=== PATIENT | male | born 1995 | race Two or more races ===

== ENCOUNTER 2021-01-18 14:15 | Inpatient (IN) | payer BC, MEDICAID ==
[~2021-01-18] VITALS: Ht 177.8 cm; Wt 88.0 kg
--- NOTE | 2021-01-18 14:20 | NUR ---
, from home, had syncopal episode, no injuries, c/o fever and body aches since . patient a/ox4, breathing even and unlabored, no sob ntoed.
--- NOTE | 2021-01-18 14:35 | NUR ---
dr. greenfield at bedside for eval.
[2021-01-18] MEDS ORDERED: ACETAMINOPHEN 325 MG TABLET ONE (14:55)
[2021-01-18] MEDS ORDERED: NS 0.9% IV ONE (15:00)
[2021-01-18] MEDS ORDERED: ACETAMINOPHEN 325 MG TABLET PO ONE (15:00)
[2021-01-18 15:04] LABS: HEMOGLOBIN 16.2 g/dL (13.5-17.5); MEAN CORPUSCULAR HGB CONC 35 g/dl (31.0-36.0); PLATELET COUNT (AUTO) 104 K/uL (150-450); WHITE BLOOD COUNT (AUTO) 3.3 K/uL (4.3-11.0)
[2021-01-18 15:06] LABS: BASOPHILS % (AUTO) 0.3 % (0.0-2.0); HEMATOCRIT 47 % (39-51); LYMPHOCYTES # (AUTO) 0.5 K/uL (0.8-4.8); LYMPHOCYTES % (AUTO) 14.4 % (20.0-44.0); MEAN CORPUSCULAR VOLUME 86 fL (80-96); MONOCYTES # (AUTO) 0.2 K/uL (0.1-1.30); NEUTROPHILS # (AUTO) 2.6 K/uL (1.8-8.9); NEUTROPHILS % (AUTO) 79.3 % (43.0-81.0); RED BLOOD CELL COUNT(AUTO) 5.44 MIL/uL (4.5-6.0)
[2021-01-18 15:10] LABS: ALCOHOL, BLOOD < 3 mg/dL (0-0); CALCIUM, SERUM 8.2 mg/dL (8.5-10.1); CARBON DIOXIDE 25 mmol/L (21-32); CHLORIDE 100 mmol/L (98-107); CREATININE 1.3 mg/dL (0.6-1.3); GLUCOSE 102 mg/dL (74-106); MAGNESIUM 1.7 mg/dL (1.8-2.4); POTASSIUM 3.6 mmol/L (3.5-5.1); SODIUM SERUM 137 mmol/L (136-145); UREA NITROGEN, BLOOD 9 mg/dL (7-18)
[2021-01-18 15:15] LABS: BILIRUBIN,URINE Negative (NEGATIVE); COLOR,URINE YELLOW (YELLOW); LEUKOCYTE ESTERASE ,URINE Negative (NEGATIVE); NITRITE, URINE Negative (NEGATIVE); PROTEIN,URINE 30 mg/dl (NEGATIVE); UGLUCOSE Negative (NEGATIVE)
[2021-01-18 15:16] LABS: ALANINE AMINOTRANSFERASE 19 U/L (12-78); ALBUMIN 3.8 g/dL (3.4-5.0); ALKALINE PHOSPHATASE 61 U/L (46-116); ASPARTATE AMINOTRANSFERASE 31 U/L (15-37); BILIRUBIN,DIRECT 0.1 mg/dL (0.0-0.2); BILIRUBIN,TOTAL 0.4 mg/dL (0.2-1.0); TOTAL PROTEIN, SERUM 7.5 g/dL (6.4-8.2)
--- NOTE | 2021-01-18 15:20 | NUR ---
PATIENT TAKEN TO CT.
[2021-01-18 15:22] LABS: RBC,URINE 0-2 /HPF (0-2)
[2021-01-18 15:23] LABS: BACTERIA,URINE Few /HPF (None Seen)
--- NOTE | 2021-01-18 15:30 | NUR ---
MOVE SHEET SUBMITTED.
--- NOTE | 2021-01-18 16:22 | NUR ---
PATIENT RESTING, NO DISTRESS NOTED.
[2021-01-18] MEDS ORDERED: CEFTRIAXONE 1 G in IV D5W 50 ML IV ONE (16:30)
[2021-01-18] MEDS ORDERED: MAGNESIUM OXIDE 400 MG TABLET PO ONE (16:30)
[2021-01-18] MEDS ORDERED: AZITHROMYCIN 500 MG in IV D5W 250 ML IV ONE (16:30)
[2021-01-18] MEDS ORDERED: CEFTRIAXONE 1GM BAG (ER ONLY) 50 ML IV ONE (16:45)
--- NOTE | 2021-01-18 16:50 | NUR ---
BED 108, GIVE REPORT AFTER 20 MINS.
[2021-01-18] MEDS ORDERED: AZITHROMYCIN 500 MG VIAL ONE (16:52)
--- NOTE | 2021-01-18 17:28 | NUR ---
REPORT GIVEN TO MARIAH EDWARDS FOR RAYO.
--- NOTE | 2021-01-18 17:29 | NUR ---
PATIENT TRANSFERRED TO ROOM 108 VIA ACLS PROTOCOL. IN NO DISTRESS 98% ON ROOM AIR.
[2021-01-18 17:30] VITALS: BP 95/60
--- NOTE | 2021-01-18 17:35 | NUR ---
GLOBAL SUPPLY CHAIN VICE PRESIDENT NOTE RECEIVED PT FROM ER. COVID + BY DR. LOPEZ. FROM HOME WITH SYNCOPAL EPISODE. AO X 3, PLACED ON 3L O2 NC, 96% SATURATION, SINUS RHYTHM HR 88 ON MONITOR, DENIES CHEST PAIN OR DISCOMFORT. IV ACCESS ON RT AC G 18, ONGOING AZYTHROMYCIN IV. PATIENT FOR CT PULMONARY ANGIOGRAM. DR. LOPEZ NOTIFIED OF ADMISSIONS AND ASKED FOR ADMIT ORDERS. UNIT ORIENTATION AND USED OF CALL LIGHT DONE. SAFETY MEASURES IN PLACE. BED LOW LOCKED, SR UP X 2, WILL ENDORSE TO NEXT SHIFT FOR RAYO.
[2021-01-18] MEDS ORDERED: ACETAMINOPHEN 325 MG TABLET PO PRN (18:00)
[2021-01-18] MEDS ORDERED: ZOLPIDEM TARTRATE 5 MG TABLET PO PRN (18:00)
[2021-01-18] MEDS: DEXAMETHASONE SOD PHOSPHATE 10 MG/ML VIAL IV SCH (18:31)
[2021-01-18] MEDS: Magnesium 1GM/D5W 100ML PREMIX 100 ML IV SCH ×2 (18:33→20:33)
[2021-01-18] MEDS ORDERED: IV NS 0.9% 250 ML IV ONE (18:36)
[2021-01-18] MEDS ORDERED: IOHEXOL-350 100 ML VIAL IV ONE (18:36)
--- NOTE | 2021-01-18 19:30 | NUR ---
RN NOTE RECEIVED PATIENT IN BED. A/OX4. ON 3L/MIN BUT REMOVE NASAL CANNULA. STABLE ON ROOM AIR. RESPIRATIONS ARE EVEN AND UNLABORED. NO S/S SOB NOTED. NO C/O PAIN AT THIS TIME. PATIENT STATES HE FEELS NAUSEOUS. TELE MONITOR READS SINUS RHYTHM. IN NO APPARENT DISTRESS. IV ACCESS IN LAC IS LEAKING, INFORMED PATIENT WILL NEED TO PLACE A NEW IV ACCESS, AGREED. BED IS LOW AND LOCKED, HOB ELEVATED IN SEMI FOWLERS, SIDE RAILS UP X2, CALL LIGHT WITHIN REACH. INFORMED PATIENT ON USE AND TO NOTIFY STAFF IF FEELING SOB. WILL CONTINUE TO MONITOR THROUGHOUT SHIFT.
[2021-01-18 20:00] VITALS: BP 105/68
--- NOTE | 2021-01-18 20:38 | NUR ---
RN NOTE INFORMED DR. LOPEZ THAT IS PATIENT IS COMPLAINING OF NAUSEA BUT NO PRN ORDER IS AVAILABLE. TELEPHONE ORDER FOR ZOFRAN 4MG IV Q6HR PRN. ORDER READ BACK NOTED AND CARRIED OUT.
[2021-01-18] MEDS ORDERED: ONDANSETRON HCL/PF 4 MG/2 ML VIAL IV PRN (21:00)
[2021-01-19] VITALS: BP 94/65
[2021-01-19 04:00] VITALS: BP 104/61
--- NOTE | 2021-01-19 06:19 | NUR ---
RN NOTE PATIENT RESTING IN BED. A/OX4. ON ROOM AIR. NO RESP DISTRESS. NO C/O PAIN. NAUSEA MANAGED WITH ZOFRAN. TELE MONITOR IS SINUS RHYTHM. NO DISTRESS. IV IN RAC#20 PATENT AND SALINE LOCKED. BED REMAINS LOW AND LOCKED, HOB ELEVATED IN SEMI FOWLERS, SIDE RAILS UP X2, CALL LIGHT WITHIN REACH. WILL ENDORSE TO ONCOMING STAFF.
[2021-01-19 06:30] LABS: BASOPHILS % (AUTO) 0.2 % (0.0-2.0); HEMATOCRIT 47 % (39-51); HEMOGLOBIN 16.2 g/dL (13.5-17.5); LYMPHOCYTES # (AUTO) 0.7 K/uL (0.8-4.8); LYMPHOCYTES % (AUTO) 30.7 % (20.0-44.0); MEAN CORPUSCULAR HGB CONC 35 g/dl (31.0-36.0); MEAN CORPUSCULAR VOLUME 87 fL (80-96); MONOCYTES # (AUTO) 0.2 K/uL (0.1-1.30); MONOCYTES % (AUTO) 7.6 % (2.0-12.0); NEUTROPHILS # (AUTO) 1.5 K/uL (1.8-8.9); NEUTROPHILS % (AUTO) 61.5 % (43.0-81.0); PLATELET COUNT (AUTO) 108 K/uL (150-450); RED BLOOD CELL COUNT(AUTO) 5.38 MIL/uL (4.5-6.0); WHITE BLOOD COUNT (AUTO) 2.4 K/uL (4.3-11.0)
[2021-01-19 06:59] LABS: ALBUMIN 3.4 g/dL (3.4-5.0); BILIRUBIN,TOTAL 0.4 mg/dL (0.2-1.0); CREATININE 1.2 mg/dL (0.6-1.3); MAGNESIUM 2.7 mg/dL (1.8-2.4); POTASSIUM 4.7 mmol/L (3.5-5.1); TOTAL PROTEIN, SERUM 7.3 g/dL (6.4-8.2)
[2021-01-19 07:10] LABS: C-REACTIVE PROTEIN 2.9 mg/dL (0.0-0.9)
--- NOTE | 2021-01-19 07:46 | NUR ---
RN OPENING NOTES RECEIVED PATIENT ON BED SLEEPING EASILY AWAKEN BY NAME AND LIGHT TOUCH. PATIENT IS ON ROOM AIR RIGHT NOW SATURATING WELL. PATIENT IN NO APPARENT RESPIRATORY DISTRESS NOTED. NO COMPLAINED OF PAIN NOTED AT THIS TIME. WILL CONTINUE TO MONITOR.
[2021-01-19] MEDS: DEXAMETHASONE SOD PHOSPHATE 10 MG/ML VIAL IV SCH (09:03)
[2021-01-19] MEDS: ENOXAPARIN SODIUM 30 MG/0.3 ML DISP.SYRIN SQ SCH (09:04)
[2021-01-19 10:00] VITALS: BP 111/70
[2021-01-19 12:00] VITALS: BP 103/68
[2021-01-19 16:00] VITALS: BP 104/64
--- NOTE | 2021-01-19 19:02 | NUR ---
RN CLOSING NOTES PATIENT IS ON BED AWAKE ALERT AND ORIENTED X4. PATIENT IS ON 3 L OXYGEN VIA NASALA CANNULA, SATURTAION 97%. PATIENT IN NO APPARENT RESPIRATORY DISTRESS NOTED. NO COMPLAINED OF PAIN AT THIS TIME. TELE MONITOR READING SINUS RHYTHM 74BPM.SEEN AND EXAMINED BY MD WITH ORDERS MADE AND CARRIED OUT. ALL DUE MEDICATIONS WAS GIVEN. IV ACCESS AT RIGHT AC # 20 G PATENT AND INTACT. SAFETY PRECAUTION WAS IN PLACED. BED IN LOWEST POSITION AND LOCKED. CALL LIGHT WITHIN REACH. WILL ENDORSED TO HULL AND DECK REMOVER FOR RAYO.
[2021-01-19 20:00] VITALS: BP 116/70
[2021-01-19] MEDS: HYDROCODONE/APAP 5/325MG TABLET PO PRN (22:09)
[2021-01-20] VITALS: BP 110/68
[2021-01-20] MEDS: HYDROCODONE/APAP 5/325MG TABLET PO PRN (02:16)
[2021-01-20 04:00] VITALS: BP_SYST 108; BP_SYST 111; BP_DIAS 62; BP_DIAS 80
[2021-01-20 06:52] LABS: BASOPHILS % (AUTO) 0.1 % (0.0-2.0); HEMATOCRIT 43 % (39-51); HEMOGLOBIN 15.1 g/dL (13.5-17.5); LYMPHOCYTES % (AUTO) 12.7 % (20.0-44.0); MEAN CORPUSCULAR HGB CONC 35 g/dl (31.0-36.0); MEAN CORPUSCULAR VOLUME 86 fL (80-96); MONOCYTES # (AUTO) 0.5 K/uL (0.1-1.30); MONOCYTES % (AUTO) 6.6 % (2.0-12.0); NEUTROPHILS # (AUTO) 6.6 K/uL (1.8-8.9); NEUTROPHILS % (AUTO) 80.6 % (43.0-81.0); PLATELET COUNT (AUTO) 139 K/uL (150-450); RED BLOOD CELL COUNT(AUTO) 5.06 MIL/uL (4.5-6.0); WHITE BLOOD COUNT (AUTO) 8.1 K/uL (4.3-11.0)
--- NOTE | 2021-01-20 07:30 | NUR ---
RN NOTE PATIENT IS ON 3L NC WITH NO SIGNS OF LABORED BREATHING. HOB AT SEMI FOWLERS POSITION. PATIENT IS AOX4. LAC 20 IS PATENT AND INTACT. BED IS LOCKED IN THE LOWEST POSITION, 3 GUARD RAILS RAISED, CALL [place] WITHIN REACH, AND ALL HOSPITAL SAFETY PRECAUTIONS ARE BEING FOLLOWED. WILL CONTINUE TO MONITOR THROUGHOUT SHIFT.
[2021-01-20 07:56] LABS: POTASSIUM 3.7 mmol/L (3.5-5.1)
[2021-01-20] MEDS: DEXAMETHASONE SOD PHOSPHATE 10 MG/ML VIAL IV SCH (08:33)
[2021-01-20] MEDS: ENOXAPARIN SODIUM 30 MG/0.3 ML DISP.SYRIN SQ SCH (08:34)
[2021-01-20 08:45] LABS: C-REACTIVE PROTEIN 1.4 mg/dL (0.0-0.9)
[2021-01-20 12:00] VITALS: BP 96/66
[2021-01-20 16:00] VITALS: BP 103/62
--- NOTE | 2021-01-20 18:54 | NUR ---
RN NOTE PATIENT IS ON RA WITH NO SIGNS OF LABORED BREATHING. HOB AT SEMI FOWLERS POSITION. PATIENT IS AOX4. LAC 20 IS PATENT AND INTACT. BED IS LOCKED IN THE LOWEST POSITION, 3 GUARD RAILS RAISED, CALL [place] WITHIN REACH, AND ALL HOSPITAL SAFETY PRECAUTIONS ARE BEING FOLLOWED. ALL DUE MEDS GIVEN AND PATIENT REMAINED STABLE THROUGHOUT SHIFT. WILL ENDORSE TO QUALITY PROCESS AUDITOR RN.
--- NOTE | 2021-01-20 19:40 | NUR ---
RN NOTE REC'D PT IN BED. A/O X4. PT IS ON ROOM AIR, TOLERATING WELL. PT VERBALIZES HE PLACES ON NASAL CANNULA AT 2L WHEN HE HAS DIFFICULTY BREATHING. AT THIS TIME. NO SOB NO RESP DISTRESS. PT PRESENTS WITH NSR HR OF 71 ON TELE MONITOR. PT DENIES PAIN. PT IV SITE FLUSHED ASEPTICALLY. PATENT. DRESSING CLEAN DRY INTACT. ISOLATION PRECAUTIONS IN PLACE FOR POSITIVE COVID RESULT. PT SAFETY MEASURES IN PLACE HOB ELEVATED. SIDE RAILS UP X2 BED LOCKED IN LOWEST POSITION WITH BED ALARM ON. CALL LIGHT WITHIN REACH. WILL CONT TO MONITOR CLOSELY.
[2021-01-20 20:00] VITALS: BP 105/67
[2021-01-21] VITALS: BP 104/62
[2021-01-21 04:00] VITALS: BP 98/54
--- NOTE | 2021-01-21 05:46 | NUR ---
RN NOTE PT REFUSED AM LABS AT THIS TIME, DID NOT SLEEP UNTIL LATE, LAB WILL RETURN AT A DIFFERENT TIME, PT AGREES LATER TIME IS BEST.
--- NOTE | 2021-01-21 06:48 | NUR ---
RN CLOSING NOTES PT REMAINS ON ROOM AIR, THROUGHOUT NIGHT PT TOLERATED WITH NC OFF. LOWEST O2 SAT 95% WITHOUT NC. AT THIS TIME, NO DISTRESS NOTED. NO SOB. PT PLACES O2 AT 2L WHEN FEELS DISCOMFORT. PT IS SINUS YAN, HR GOES TO 36 LOWEST, PT NOT IN DISTRESS. ABLE TO SPEAK, VERBALIZES HE WAS ASLEEP. BASELINE HR 40-50. ALL DUE MEDS GIVEN. PT DENIES PAIN AT THIS TIME. ALL NEEDS ATTENDED. SAFETY MEASURES IN PLACE. HOB ELEVATED, SIDE RAILS UP X2 BED LOCKED IN LOWEST POSITION WITH BED ALARM ON. CALL LIGHT WITHIN REACH. WILL ENDORSE TO DAY SHIFT RN FOR CONTINUATION OF CARE.
--- NOTE | 2021-01-21 07:50 | NUR ---
FLIGHT RADIO OPERATOR OPENING NOTES RECEIVED PATIENT IN BED, AWAKE, A/O X4. PATIENT ON ROOM AIR, BREATHING EVEN AND UNLABORED; NO SOB PRESENT AT THIS TIME. TELE MONITOR WITH A CURRENT READING OF SB IN THE 40S. NO COMPLAINS OF PAIN. IV ACCESS ON RAC G #20; SL. SAFETY PRECAUTIONS IN PLACE; BED IN LOW POSITION AND LOCKED, RAILS UP X2, CALL LIGHT WITHIN REACH. WILL CONTINUE TO MONITOR PATIENT.
[2021-01-21 08:00] VITALS: BP 111/59
[2021-01-21] MEDS: DEXAMETHASONE SOD PHOSPHATE 10 MG/ML VIAL IV SCH (08:13)
[2021-01-21] MEDS: ENOXAPARIN SODIUM 30 MG/0.3 ML DISP.SYRIN SQ SCH (08:15)
[2021-01-21] MEDS ORDERED: DEXA6TAB6 PO (09:21)
[2021-01-21 12:31] LABS: HEMATOCRIT 45 % (39-51); HEMOGLOBIN 15.6 g/dL (13.5-17.5); LYMPHOCYTES # (AUTO) 0.7 K/uL (0.8-4.8); LYMPHOCYTES % (AUTO) 10.9 % (20.0-44.0); MEAN CORPUSCULAR HGB CONC 35 g/dl (31.0-36.0); MEAN CORPUSCULAR VOLUME 87 fL (80-96); MONOCYTES # (AUTO) 0.4 K/uL (0.1-1.30); MONOCYTES % (AUTO) 6.9 % (2.0-12.0); NEUTROPHILS % (AUTO) 82.2 % (43.0-81.0); PLATELET COUNT (AUTO) 179 K/uL (150-450); WHITE BLOOD COUNT (AUTO) 6.1 K/uL (4.3-11.0)
[2021-01-21 13:06] LABS: CALCIUM, SERUM 8.1 mg/dL (8.5-10.1)
[2021-01-21 13:14] LABS: C-REACTIVE PROTEIN 1.5 mg/dL (0.0-0.9)
[2021-01-21 13:44] VITALS: BP 104/61
[2021-01-21 16:26] VITALS: BP 108/57
--- NOTE | 2021-01-21 16:57 | NUR ---
MS IMPACT HAMMER OPERATOR NOTES PATIENT DISCHARGED HOME IN MEDICALLY STABLE CONDITION. PATIENT A/O X4 ABLE TO MAKE NEEDS KNOWN. ALL DISCHARGE PAPERWORK READY; TEACHING PROVIDED TO PATIENT REGARDING PHYSICIAN INSTRUCTIONS AND MEDICATIONS. PATIENT VERBALIZED UNDERSTANDING. BELONGINGS ACCOUNTED FOR AND FORM SIGNED WELL. SKIN INTACT. IV ACCESS REMOVED WITH THE WRISTBAND BEFORE LEAVING THE UNIT. PATIENT PICKED UP BY HIS FATHER AND LEFT THE FLOOR ACCOMPANIED BY RN AT [id number]. LEFT THE HOSPITAL IN A PRIVATE CAR.
== END 2021-01-21 15:20 | disposition home or self-care (01) | DRG 137 ==
LOC: ER 14:20 → TELE1 16:54
PROVIDERS: ADMIT Internal Medicine; ATTEND Internal Medicine
DX: U07.1 COVID-19 (principal); J12.82 Pneumonia due to coronavirus disease 2019; D69.6 Thrombocytopenia, unspecified; F12.90 Cannabis use, unspecified, uncomplicated; F17.210 Nicotine dependence, cigarettes, uncomplicated; E86.0 Dehydration; D72.819 Decreased white blood cell count, unspecified; I95.1 Orthostatic hypotension; R09.02 Hypoxemia
CPT/HCPCS: 36415; 70450-TC; 71045-TC; 73030-TC; 80048-TC; 80053-TC; 80061-TC; 80076-TC; 81001; 83605-TC; 83735-TC; 84484-TC; 85025-TC; 85378-TC; 85730-TC; 86140-TC; 87040-TC; 87081-TC; 87086-TC; 93307-TC; C9803; G0378; G0480; J0456; J0696; J1100; J1650; J2405; J3475; J7030; J7040; J7050; J7060; Q9967